=== PATIENT | male | born 1995 | race Caucasian/White ===

== ENCOUNTER 2021-08-16 21:01 | Emergency (ER) | payer MEDICAID ==
[~2021-08-16] VITALS: Ht 170.2 cm; Wt 71.2 kg
[2021-08-16 21:18] LABS: HEMATOCRIT 46.9 % (42.0-52.0); HEMOGLOBIN 16.1 gm/dL (14.0-18.0); MCH 30.8 pg (26.0-34.0); MCHC 34.4 g/dL (28.0-37.0); MCV 89.5 fL (80.0-100.0); RBC 5.24 mil/uL (4.50-6.00); RDW-CV 13.3 % (10.5-14.5); WBC 8.3 thou/uL (4.0-11.0)
[2021-08-16 21:27] LABS: CALCIUM 9.4 mg/dL (8.5-10.1)
[2021-08-16 21:34] LABS: ALBUMIN 4.8 g/dL (3.4-5.0); ALCOHOL < 10 mg/dL (<10); SALICYLATE < 2.8 mg/dL (2.8-20.0)
[2021-08-16 21:36] LABS: ACETAMINOPHEN < 2 ug/mL (10-30)
[2021-08-16 21:42] LABS: POTASSIUM 2.9 mmol/L (3.5-5.1)
[2021-08-16 23:59] LABS: URINE BILIRUBIN NEGATIVE (Negative); URINE BLOOD NEGATIVE (Negative); URINE CLARITY CLEAR; URINE COLOR YELLOW; URINE GLUCOSE-RANDOM 1+ (Negative); URINE KETONES TRACE (Negative); URINE LEUKOCYTES NEGATIVE (Negative); URINE NITRITE NEGATIVE (Negative); URINE PROTEIN NEGATIVE (Negative); URINE SPECIFIC GRAVITY 1.025 (1.005-1.030); URINE UROBILINOGEN 0.2 E.U./dl (0.2-1.0)
[2021-08-17 00:05] LABS: AMP/METHAMP Negative (Negative); BARBITURATES Negative (Negative); BENZODIAZEPINES Negative (Negative); COCAINE Negative (Negative); METHADONE Negative (Negative); OPIATES Negative (Negative); PCP Negative (Negative); THC POSITIVE (Negative)
[2021-08-17 00:20] VITALS: BP 110/60
--- NOTE | 2021-08-17 09:34 | EKG ---
[place] [address] ELECTROCARDIOGRAM REPORT Name: ERMIAS HAMILTON Room: [facility]#: [id number] Admission: 08/16/21 Attend Phys: Discharge: 08/17/21 Date of : [birth year] Date of Service: 08/16/212106 Report #: [id number] THIS REPORT FOR: //name// [facility] ED Test Date: 2021-08-16 Test Time: 21:07:22 Pat Name: ERMIAS HAMILTON Department: Room: Gender: Insurance Writer: : 1995 Requested By: Yue Burgos Order Number: [id number] MD: Florencio Guardado Measurements Intervals [place] Rate: 128 P: 79 FL: 169 QRS: 73 QRSD: 99 T: -5 QT: 319 QTc: 466 Interpretive Statements Sinus tachycardia Borderline T abnormalities, diffuse leads Compared to ECG 08/31/2014 22:43:44 T-wave abnormality now present Sinus rhythm no longer present Electronically Signed On 08-17-2021 9:33:52 LEARNING OPERATIONS SPECIALIST by Florencio Guardado [email or web address] <ELECTRONICALLY SIGNED> By: Florencio Guardado MD, [facility] 08/17/21 0933 06 06 Florencio Guardado MD, [facility] /EPI
== END 2021-08-17 00:20 | disposition home or self-care (01) ==
LOC: M.ERS 21:01
PROVIDERS: Personal Emergency Response Attendant
DX: T40.711A Poisoning by cannabis, accidental (unintentional), initial encounter (principal); R42 Dizziness and giddiness; R11.0 Nausea; R00.0 Tachycardia, unspecified; F84.0 Autistic disorder; Y92.89 Other specified places as the place of occurrence of the external cause